=== PATIENT | female | born 1995 | race Caucasian/White ===

== ENCOUNTER → 2025-10-08 16:02 | Outpatient (REF) | payer BC, SELFPAY | LOC: PNTC 16:02 | PROVIDERS: ATTENDING PHYSICIAN Student in an Organized Health Care Education/Training Program | DX: O09.92 Supervision of high risk pregnancy, unspecified, second trimester (principal); Z36.3 Encounter for antenatal screening for malformations; Z36.86 Encounter for antenatal screening for cervical length | CPT/HCPCS: 76805; 76817 ==